=== PATIENT | female | born 1960 | race Caucasian/White ===

== ENCOUNTER → 2017-02-18 | Outpatient (CLI) | payer BC ==
[~2017-02-18] MED LIST: CHOL100010 PO; CLR10 PO; DRV65 PO; LEVO-217 PO; PROM1SUP19 PR; TRAM-10 PO
--- NOTE | 2017-02-18 13:29 | MAMMOGRAPHY REPORT ---
BILATERAL DIGITAL DIAGNOSTIC MAMMOGRAM TOMOSYNTHESIS WITH CAD AND TARGETED RIGHT ULTRASOUND: 7 CLINICAL HISTORY: 56-year-old woman presents for bilateral screening mammography. Her last mammogram was performed in July 2015. She is a family history of breast cancer = mother and reports lumpi ness of the right greater than left breast, which was also noted at time of physical exam by her phys ician. TECHNIQUE: Breast tomosynthesis in addition to standard 2D mammography was performed. Current study was also evaluated with a Computer Aided Detection (CAD) system. COMPARISON: Comparison is made to exams dated: 06/21/2011 mammogram, 05/25/2010 mammogram - [facility], 05/18/2009, 05/17/2008, 05/12/2007, and 08/02/2015 mammogram. BREAST COMPOSITION: The tissue of both breasts is heterogeneously dense, which may obscure small mas ses. FINDINGS: There are multiple bilateral circumscribed round, oval and lobulated masses scattered in th e breasts, slightly fluctuating in size comparing to the most recent prior mammogram performed 2014. These most likely represent benign cysts and fibrocystic changes. There are also diffuse bila teral punctate microcalcifications and numerous scattered bilateral rim calcifications. No suspiciou s spiculated or irregular mass, architectural distortion or cluster of new, suspicious microcalcifica tions is seen. Targeted ultrasound was performed in the right breast in the lumpy areas pointed out by the patient. Numerous scattered cysts are seen on ultrasound. The patient reported pain while scanning over 2 cy sts in the 9:00 right breast, 3 cm from the nipple, which measure 8.2 and 4.2 mm. The patient report ed an area of tightness in the lower inner quadrant of the right breast near the inframammary fold an d in this location normal 5 glandular tissue is identified without a suspicious solid or cystic mass. Another area of pain was identified in the 3:00 right breast, 3 cm from the nipple in which there i s another oval parallel circumscribed anechoic cyst measuring 8.9 x 3.3 x 7.1 mm. Several other clus tered cysts are seen in the 12:00 periareolar right breast. IMPRESSION: ACR BI-RADS CATEGORY 2: BENIGN, TARGETED ULTRASOUND ACR BI-RADS CATEGORY 2: BENIGN 1. Stable bilateral mammograms including multiple bilateral benign-appearing masses and microcalcifi cations. There is no mammographic or targeted sonographic evidence of malignancy. A 1 year screening mammogram is recommended. 2. Clinical follow-up is also recommended in the right breast, as biopsy of a clinically suspicious mass should not be precluded by negative imaging. 3. Given the family history of breast cancer and personal history of dense breasts, additional scree margarita modalities such as whole breast screening ultrasound were discussed with the patient and we will opt to perform this exam 6 months from now. (30 minutes) These results and recommendations were discussed with the patient at the time of the exam. Approximately 10% of breast cancers are not detected with mammography. A negative mammographic report should not delay biopsy if a clinically suggestive mass is present. Jenn Rodriguez M.D. ay/:02/18/2017 12:39:26 Care Rep: Daphne BAUER (R)), [facility] letter sent: Normal 1/2 BI-RADS Code: ACR BI-RADS Category 2: Benign Ultrasound BI-RADS: ACR BI-RADS Category 2: Benign
== END | disposition home or self-care (01) ==
LOC: C.MAMM 08:13
PROVIDERS: ATTEND Obstetrics & Gynecology
DX: N63 Unspecified lump in breast (principal); R92.0 Mammographic microcalcification found on diagnostic imaging of breast; Z80.3 Family history of malignant neoplasm of breast